=== PATIENT | female | born 1935 | race Caucasian/White ===

== ENCOUNTER 2017-02-14 20:04 | Emergency (ER) | payer MEDICARE ==
--- NOTE | ~2017-02-14 | CT71 ---
[facility] A Service of [facility] RADIOLOGY TEXT RESULTS PATIENT: DELMI KING LOCATION: [facility] : 37 UNIT #: [id number] AGE: [address]: Dhara Summers MD SEX: F ORDER DR: [id number] [facility] [address]. [place], [place] [address] [id number] E MR#: [id number] Acc #: [id number] NAME: DELMI KING : 1935 SEX: F STUDY DATE/TIME: 02/14/2017 22:11 UNIT: [facility] ROOM: STUDY DESCRIPTION: CT Head Wo Contrast Attending Physician: Dhara Summers M.D. Ordering Physician: Dhara Summers M.D. Primary Care Physician: No Primary Care Physician MEDICAL IMAGING REPORT This report is preliminary unless electronic signature is present EXAM CT of the head without contrast. INDICATIONS Weakness and numbness today. TECHNIQUE CT of the head was performed without contrast. This CT exam was performed with one or more of the following radiation dose reduction techniques: automatic exposure control, adjustment of mA and/or kV according to patient size, and iterative reconstruction. COMPARISON With 10/12/2016. FINDINGS No intracranial hemorrhage. No evidence for acute cortical based infarction. No focal mass lesion or hydrocephalus. Stable chronic white matter changes. Included orbits are unremarkable. The visualized paranasal sinuses unremarkable. Carotid siphon calcifications. The bone windows are unremarkable. IMPRESSION No acute intracranial abnormality. Stable exam. Dictated by... Eduar Mancia M.D. THIS IS AN ELECTRONICALLY VERIFIED REPORT Eduar Mancia M.D. at 02/15/2017 7:45 PM ARS/pc TD: 02/15/2017 11:49 [facility] A Service of [facility] RADIOLOGY TEXT RESULTS PATIENT: DELMI KING LOCATION: [facility] : 37 UNIT #: [id number] AGE: [address]: Dhara Summers MD SEX: F ORDER DR: MARY #: [id number] MEDICAL IMAGING REPORT Page 1 of 1 COPY
--- NOTE | ~2017-02-14 | EKG ---
PATIENT: DELMI KING UNIT #: [id number] Ventricular Rate: 62 BPM Atrial Rate: 62 BPM P-R Interval: 142 ms QRS Duration: 82 ms Q-T Interval: 470 ms QTC Calculation(Bezet): 477 ms P Dyer: 41 degrees Calculated R Dyer: 45 degrees Calculated T Dyer: 54 degrees Diagnosis Line: Normal sinus rhythm Diagnosis Line: Normal ECG Diagnosis Line: No previous ECGs available Diagnosis Line: Confirmed by KEANU MOELLER MD ([id number]) on 02/20/2017 Diagnosis Line: 2:27:26 PM INTERPRETING MD: SAJAN LEUNG
--- NOTE | ~2017-02-14 | CT2 ---
[facility] A Service of [facility] RADIOLOGY TEXT RESULTS PATIENT: DELMI KING LOCATION: [facility] : 37 UNIT #: [id number] AGE: [address]: Dhara Summers MD SEX: F ORDER DR: [id number] [place], [place] [address] [id number] E MR#: [id number] Acc #: [id number] NAME: DELMI KING : 1935 SEX: F STUDY DATE/TIME: 02/15/2017 1:35 UNIT: [facility] ROOM: STUDY DESCRIPTION: CT Abd and Pelv W Cont Attending Physician: Dhara Summers M.D. Ordering Physician: Dhara Summers M.D. Primary Care Physician: No Primary Care Physician MEDICAL IMAGING REPORT This report is preliminary unless electronic signature is present EXAM CT abdomen and pelvis with contrast. INDICATIONS Generalized abdominal pain for the past 1-2 weeks. PROCEDURE Contrast-enhanced CT abdomen and pelvis. This CT exam was performed with one or more of the following radiation dose reduction techniques: automatic exposure control, adjustment of mA and/or kV according to patient size, and iterative reconstruction. COMPARISON None FINDINGS ABDOMEN WITH CONTRAST: Included lung bases are clear. The liver, spleen, kidneys, adrenal glands, pancreas, and gallbladder unremarkable. Moderate colonic stool burden. The appendix is normal. No abdominal fluid collection. PELVIS WITH CONTRAST: No pelvic mass or fluid. No aggressive-appearing bone lesion. IMPRESSION No clearly acute finding. No evidence for bowel obstruction. The appendix is normal. Dictated by... [facility] A Service of [facility] RADIOLOGY TEXT RESULTS PATIENT: DELMI KING LOCATION: [facility] : 37 UNIT #: [id number] AGE: [address]: Dhara Summers MD SEX: F ORDER DR: Marvin Brito M.D. THIS IS AN ELECTRONICALLY VERIFIED REPORT Marvin Brito M.D. at 02/20/2017 2:51 PM EED/miah TD: 02/15/2017 13:05 JOB #: [id number] MEDICAL IMAGING REPORT Page 1 of 1 COPY
--- NOTE | ~2017-02-14 | CR72 ---
[facility] A Service of [facility] RADIOLOGY TEXT RESULTS PATIENT: DELMI KING LOCATION: [facility] : 37 UNIT #: [id number] AGE: [address]: Dhara Summers MD SEX: F ORDER DR: [id number] [facility] [address]. [place], [place] [address] [id number] E MR#: [id number] Acc #: [id number] NAME: DELMI KING : 1935 SEX: F STUDY DATE/TIME: 02/14/2017 21:17 UNIT: [facility] ROOM: STUDY DESCRIPTION: CR Chest Single View Portable Attending Physician: Dhara Summers M.D. Ordering Physician: Dhara Summers M.D. Primary Care Physician: No Primary Care Physician MEDICAL IMAGING REPORT This report is preliminary unless electronic signature is present EXAM Single view of the chest dated 02/14/17. COMPARISON Single view chest dated 04/26/16. HISTORY Chest pain, shortness of air and weakness today. FINDINGS Single view of the chest was obtained. Lungs are slightly hyperinflated, which could represent emphysematous changes in the appropriate clinical setting. No superimposed active cardiopulmonary disease. Postoperative changes are in the region of the gastroesophageal junction. There are probably postoperative changes of the cervicothoracic junction too, stable. Arthritic changes are in bilateral shoulders with postoperative changes in the right humeral head. Dictated by... Ace Islas M.D. THIS IS AN ELECTRONICALLY VERIFIED REPORT Ace Islas M.D. at 02/15/2017 11:46 AM CPR/pc TD: 02/15/2017 11:20 JOB #: [id number] MEDICAL IMAGING REPORT Page 1 of 1 COPY
[2017-02-14 21:08] LABS: URINE SOURCE CLEAN CATCH
[2017-02-14] MEDS ORDERED: SYNTHROID88 MCG PO (21:12)
[2017-02-14] MEDS ORDERED: ALPRAZOLAM0.5 MG PO (21:13)
[2017-02-14] MEDS ORDERED: NAMENDA XR28 MG PO (21:13)
[2017-02-14] MEDS ORDERED: ASPIRIN EC81 M1 PO (21:14)
[2017-02-14] MEDS ORDERED: NEURONTIN300 MG PO (21:14)
[2017-02-14] MEDS ORDERED: RIVASTIGMINE4.5 MG PO (21:14)
[2017-02-14 21:22] LABS: URINE APPEARANCE CLEAR; URINE BILIRUBIN NEG (NEG); URINE BLOOD NEG (NEG); URINE COLOR YELLOW; URINE GLUCOSE NEG (NEG); URINE KETONE TRACE (NEG); URINE LEUKOCYTE ESTERASE 2+ (NEG); URINE NITRATE NEG (NEG); URINE PROTEIN NEG (NEG); URINE SPECIFIC GRAVITY 1.006 (1.003-1.035); URINE UROBILINOGEN 0.2 MG/DL (NEG)
[2017-02-14 21:27] LABS: URBCS1 AUWI 0-2 /[HPF] (0-2); URINE BACTERIA AUWI NEG (NEGATIVE); URINE SQUAMOUS EPITHELIAL CELL NONE SEEN /[HPF]
[2017-02-14 21:30] LABS: CULTURE INDICATED? NO; UWBCS1 AUWI 0-2 (0-5)
[2017-02-14 22:09] LABS: POC - CKMB 1.3 ng/mL (0.0-7.9); POC - TROPONIN <0.05 ng/mL (<=0.05)
[2017-02-14 23:57] LABS: POC - CKMB 1.3 ng/mL (0.0-7.9); POC - TROPONIN <0.05 ng/mL (<=0.05)
[2017-02-15 00:15] LABS: BASOPHIL# 0.1 X10e3 (0-0.3); BASOPHIL% 0.8 % (0-2.5); EOSINOPHIL# 0.1 X10e3 (0-0.7); EOSINOPHIL% 1.1 % (0.0-7.0); HEMATOCRIT 39.3 % (35.0-45.0); HEMOGLOBIN 13.3 gm/dL (12.0-16.0); LYMPHOCYTE# 2.2 X10e3 (1.0-3.5); LYMPHOCYTE% 25.2 % (17.0-45.0); MEAN CELL VOLUME 96.3 FL (83-96); MEAN CORPUSCULAR HEMOGLOBIN 32.6 PG (28-34); MEAN CORPUSCULAR HGB CONC 33.8 g/dL (30-36); MEAN PLATELET VOLUME 9.6 FL (6.5-11.5); MONOCYTE# 0.6 X10e3 (0-1.0); NEUTROPHIL# 5.7 X10e3 (1.5-7.1); NEUTROPHIL% 65.9 % (40-75); PLATELET COUNT 225 X10e3 (140-420); RED BLOOD COUNT 4.08 X10e (3.90-5.30); RED CELL DISTRIBUTION WIDTH 13.7 % (11.0-15.5); WHITE BLOOD COUNT 8.6 X10e3 (4.0-10.5)
[2017-02-15 00:17] LABS: DIFF IND NO
[2017-02-15 00:29] LABS: PARTIAL THROMBOPLASTIN TIME 29.1 SECONDS (23.5-31.3); PROTHROMBIN TIME (PATIENT) 11.1 SECONDS (10.0-11.7)
[2017-02-15 00:30] LABS: ALBUMIN SERUM 4.8 g/dL (3.5-5.0); BILIRUBIN, DIRECT 0.1 mg/dL (0.0-0.2); BILIRUBIN,INDIRECT 0.5 mg/dL (0.0-0.9); BILIRUBIN,TOTAL 0.6 mg/dL (0.2-2.0); BUN/CREATININE RATIO 13.75; CALCIUM SERUM 9.2 mg/dL (8.4-10.2); CREATININE SERUM 0.8 mg/dL (0.6-1.4); GLOM FILT RATE Estimated 70.2 mL/min (>60); MAGNESIUM 2.3 mg/dL (1.6-3.0); POTASSIUM 3.4 mmol/L (3.5-5.1); PROTEIN TOTAL SERUM 7.7 g/dL (6.0-8.3)
== END 2017-02-15 03:37 | disposition home or self-care (01) ==
LOC: CED 20:04
PROVIDERS: Student in an Organized Health Care Education/Training Program
DX: R11.2 Nausea with vomiting, unspecified (principal); I10 Essential (primary) hypertension; F41.9 Anxiety disorder, unspecified; Z88.0 Allergy status to penicillin; Z88.8 Allergy status to other drugs, medicaments and biological substances; Z79.82 Long term (current) use of aspirin; Z79.899 Other long term (current) drug therapy
CPT/HCPCS: 36415; 70450; 71010; 74177; 80048; 80076; 81003; 82150; 82553; 82947; 83690; 83735; 83880; 84484; 85025; 85610; 85730; 93005; 96374; 99285; J0360; Q9967